=== PATIENT | female | born 1960 | race Caucasian/White ===

== ENCOUNTER → 2019-07-17 10:32 | Outpatient (CLI) | payer OTHER, MEDICARE, SELFPAY ==
--- NOTE | ~2019-07-17 | MM_ITS ---
EXAMINATION: MM screening khang BI w marilyn HISTORY: Screening mammogram TECHNIQUE: Craniocaudal and mediolateral oblique 3-D tomosynthesis images were obtained and synthetic 2-D images were generated. CAD analysis was submitted and interpreted. COMPARISON: 03/26/2018, 03/24/2017, 02/17/2016 bilateral digital screening mammogram examinations BREAST PARENCHYMAL COMPOSITION: The breasts are heterogeneously dense, which may obscure small masses . FINDINGS: There is no evidence of suspicious mass, calcification, or architectural distortion to sugg est malignancy in either breast. There has been no suspicious interval change. IMPRESSION: 1. No mammographic evidence of malignancy. 2. Recommend routine screening mammography in one year. BI-RADS Category 1: Negative Reviewed, dictated and finalized at location A. [employer]
== END ==
PROVIDERS: PCP Family Medicine; Visit Provider Obstetrics & Gynecology
DX: Z12.31 Encounter for screening mammogram for malignant neoplasm of breast (principal)
CPT/HCPCS: 77063; 77067

== ENCOUNTER → 2020-09-17 16:18 | Outpatient (CLI) | payer OTHER, MEDICARE, SELFPAY ==
--- NOTE | ~2020-09-17 | MM_ITS ---
EXAMINATION: MM screening khang BI w marilyn HISTORY: Screening TECHNIQUE: Craniocaudal and mediolateral oblique 3-D tomosynthesis images were obtained and synthetic 2-D images were generated. CAD analysis was submitted and interpreted. COMPARISON: Comparison to multiple prior studies sequentially, with oldest reviewed study dated 01/2015. BREAST PARENCHYMAL COMPOSITION: The breasts are heterogeneously dense, which may obscure small masses . FINDINGS: There is focal architectural distortion in the upper central aspect of the left breast whic h was not definitely seen on prior study. The right breast is stable without evidence for malignancy. IMPRESSION: 1. Architectural distortion upper central left breast, middle third. 2. Additional mammographic views and possible breast ultrasound are recommended. BI-RADS Category 0: Incomplete: Needs additional imaging evaluation. Reviewed, dictated and finalized at location A. IMPRESSION: 1. Architectural distortion upper central left breast, middle third. 2. Additional mammographic views and possible breast ultrasound are recommended . BI-RADS Category 0: Incomplete: Needs additional imaging evaluation.
== END ==
PROVIDERS: PCP Internal Medicine; Visit Provider Nurse Practitioner Obstetrics & Gynecology
DX: Z12.31 Encounter for screening mammogram for malignant neoplasm of breast (principal)
CPT/HCPCS: 77063; 77067

== ENCOUNTER → 2020-10-09 12:47 | Outpatient (CLI) | payer OTHER, MEDICARE, SELFPAY ==
--- NOTE | ~2020-10-09 | DEXA_ITS ---
Bone Density Report Name: Shreya Vernon Age: 60 Sex: Female Ethnicity: White Date of : 1960 Indication: postmenopausal; screening for osteoporosis; parental hip fracture; height loss; prior fracture; Referring Provider: Keli, Suad Contreras Study: Bone densitometry was performed. Exam Date: October 09, 2020 Accession number: [id number] Bone Density: Region BMD T-score Z-score Classification Femoral Neck (Left) 0.891 0.4 1.6 Normal Total Hip (Left) 1.031 0.7 1.6 Normal Femoral Neck (Right) 0.837 -0.1 1.1 Normal Total Hip (Right) 1.003 0.5 1.3 Normal Total Hip Mean 1.017 0.6 1.5 Normal World Health Organization criteria for BMD impression classify patients as: Normal (T-score at or above -1.0), Osteopenia (T-score between -1.0 and -2.5), or Osteoporosis (T-score at or below -2.5). 10-year Fracture Risk: FRAX not reported because: All T-scores for Spine Total, Hip Total, Femoral Neck at or above -1.0 Prior hip or vertebral fracture Previous Exams: Region Exam Age BMD T-score BMD Change BMD Change Date g/cm2 vs Baseline vs Previous Total Hip(Left) 10/09/2020 60 1.031 0.7 -0.099* -0.121* 01/21/2015 54 1.152 1.7 0.022 0.022 10/11/2011 51 1.131 1.5 Total Hip(Right) 10/09/2020 60 1.003 0.5 -0.130* -0.126* 01/21/2015 54 1.130 1.5 -0.004 -0.004 10/11/2011 51 1.133 1.6 *Denotes significance at 95% confidence level, LSC for Total Hip = 0.027 g/cm2 Clinical Information Provided by Patient: Have had a previous hip or vertebral fracture Has had a low trauma fracture Parent has had a hip fracture Has used the following medications: Vitamin D, Calcium, MTV Patient maximum height was 70.0 Menopause Age: 55 No regular weight bearing exercise Does not regularly consume dairy products Drinks caffeinated beverages Onset of menses at age 13 Number of children 2 Impression: The patient has normal bone mass. The patient has risk factors, including: parental hip fracture, previous fracture. The BMD for the Total Hip(Left) decreased, changing by -0.121 since the last DXA exam. The BMD for the Total Hip(Right) decreased, changing by -0.126 since the last DXA exam. Discussion: INCREASED RISK OF FRACTURE DUE TO HISTORY OF FRACTURE. The patient's previous fracture puts the patient at high risk of a future fracture. In untreated patients, the risk of osteoporotic fracture increases approximately two-fold for each
== END ==
PROVIDERS: Visit Provider Nurse Practitioner Obstetrics & Gynecology
DX: Z78.0 Asymptomatic menopausal state (principal)
CPT/HCPCS: 77080

== ENCOUNTER → 2020-10-21 09:55 | Outpatient (CLI) | payer OTHER, MEDICARE, SELFPAY ==
--- NOTE | ~2020-10-21 | MMUS_ITS ---
EXAMINATION: MM diagnostic khang LT w marilyn, US breast LT complete HISTORY: Architectural distortion reported in middle third of central left breast on 09/17/2020 screeni ng mammogram TECHNIQUE: Additional 3-D tomosynthesis images of the left breast were performed and synthetic 2-D im ages were generated. CAD analysis was submitted and interpreted. High resolution complete left breast ultrasound was performed. COMPARISON: 09/17/2020 bilateral digital screening mammogram FINDINGS: MAMMOGRAPHIC FINDINGS: An approximately 4 mm mass with associated architectural distortion is suggested in the upper central anterior left breast. ULTRASOUND: 12:00 5 cm from nipple: There is an irregular hypoechoic approximately 6 mm mass with internal vascul arity and posterior shadowing, suspicious for malignancy. Ultrasound-guided biopsy is recommended. IMPRESSION: 1. Suspicious 6 mm mass at 12:00 5 cm from nipple 2. Ultrasound-guided biopsy of left breast 12:00 lesion is recommended BI-RADS category 4, suspicious findings. Dr. Craig telephoned the report and ultrasound guided biopsy recommendation on 10/31/2020 at 1057 hours to Hilda. Reviewed, dictated and finalized at location A. IMPRESSION: 1. Suspicious 6 mm mass at 12:00 5 cm from nipple 2. Ultrasound-guided biopsy of left breast 12:00 lesion is recommended BI-RADS category 4, suspicious findings. Dr. Craig telephoned the report and ultrasound guided biopsy recommendation on at 1057 hours to Hilda.
== END ==
PROVIDERS: Visit Provider Nurse Practitioner Obstetrics & Gynecology
DX: R92.8 Other abnormal and inconclusive findings on diagnostic imaging of breast (principal); N63.25 Unspecified lump in the left breast, overlapping quadrants
CPT/HCPCS: 76641; 77061; 77065; G0279

== ENCOUNTER → 2023-01-23 15:07 | Outpatient (CLI) | payer OTHER, MEDICARE, SELFPAY ==
--- NOTE | ~2023-01-23 | DEXA_ITS ---
Bone Density Report Name: RUBY NUNEZ Age: 62 Sex: Female Ethnicity: White Date of : 1960 Indication: postmenopausal; screening for osteoporosis; parental hip fracture; height loss; prior fracture; cancer; Referring Provider: UNKNOWN, UNKNOWN Study: Bone densitometry was performed. Exam Date: January 23, 2023 Accession number: [id number] Bone Density: Region BMD T-score Z-score Classification Femoral Neck (Left) 0.903 0.5 1.8 Normal Total Hip (Left) 1.030 0.7 1.7 Normal Femoral Neck (Right) 0.826 -0.2 1.1 Normal Total Hip (Right) 0.976 0.3 1.3 Normal Total Hip Mean 1.003 0.5 1.5 Normal World Health Organization criteria for BMD impression classify patients as: Normal (T-score at or above -1.0), Osteopenia (T-score between -1.0 and -2.5), or Osteoporosis (T-score at or below -2.5). 10-year Fracture Risk: FRAX not reported because: All T-scores for Spine Total, Hip Total, Femoral Neck at or above -1.0 Prior hip or vertebral fracture Previous Exams: Region Exam Age BMD T-score BMD Change BMD Change Date g/cm2 vs Baseline vs Previous Total Hip(Left) 01/23/2023 62 1.030 0.7 -0.101* -0.001 10/09/2020 60 1.031 0.7 -0.099* -0.121* 01/21/2015 54 1.152 1.7 0.022 0.022 10/11/2011 51 1.131 1.5 Total Hip(Right) 01/23/2023 62 0.976 0.3 -0.157* -0.027 10/09/2020 60 1.003 0.5 -0.130* -0.126* 01/21/2015 54 1.130 1.5 -0.004 -0.004 10/11/2011 51 1.133 1.6 *Denotes significance at 95% confidence level, LSC for Total Hip = 0.027 g/cm2 Clinical Information Provided by Patient: Have had a previous hip or vertebral fracture Has had a low trauma fracture Parent has had a hip fracture Has used the following medications: Calcium, MTV Has the following medical conditions: Cancer Patient maximum height was 70.0 Menopause Age: 55 No regular weight bearing exercise Does not regularly consume dairy products Drinks caffeinated beverages Onset of menses at age 13 Number of children 2 Impression: The patient has normal bone mass. The patient has risk factors, including: parental hip fracture, previous fracture. No significant bone loss was observed. Discussion: INCREASED RISK OF FRACTURE DUE TO HISTORY OF FRACTURE. The patient's previous fracture puts the patient at high risk of a future fracture. In untreated patients, the risk of osteoporotic fracture increases
== END ==
DX: C50.912 Malignant neoplasm of unspecified site of left female breast (principal); Z85.3 Personal history of malignant neoplasm of breast; Z79.811 Long term (current) use of aromatase inhibitors
CPT/HCPCS: 77080

== ENCOUNTER 2023-06-14 00:23 | Day surgery (SDC) | payer OTHER, MEDICARE, SELFPAY ==
[2023-05-26 11:14] VITALS: BMI 23.3
--- NOTE | 2023-06-12 12:57 | SUR.PREOP ---
Patient called regarding upcoming procedure. Pt updated on arrival date and time. All questions answered.
[2023-06-14 09:22] VITALS: BP 124/78; PULSE 72; RESP 20; TEMP 36.2; O2SAT 100
--- NOTE | 2023-06-14 09:26 | WPDANESEPPF ---
Anes - Initial Pre Proc Eval Procedure: Operation Date: 06/14/23 10:00 Proposed Procedures p Colonoscopy - Arun Rodriguez MD Date/Time: 06/14/23 09:26 Surgeon: Arun Rodriguez MD Pre Op Diagnosis: Fam hx of malignant neoplasm of digestive organs Patient Data Age: 62 Gender: F Height: 1.75 m Weight: 72.6 kg Last Vital Signs Temp 97.2 F L 06/14/23 09:22 Pulse 72 06/14/23 09:22 Resp 20 06/14/23 09:22 BP 124/78 06/14/23 09:22 Pulse Ox 100 06/14/23 09:22 O2 Del Method Room Air 06/14/23 09:22 Allergies Allergy/AdvReac Type Severity Reaction Status Date / Time amoxicillin Allergy Mild Rash Verified 06/14/23 09:20 hexachlorophene Allergy Mild Rash Verified 06/14/23 09:20 phenobarbital Allergy Mild DEATHLY ILL Verified 06/14/23 09:20 erythromycin base Allergy Unknown Nausea Verified 06/14/23 09:20 Penicillins Allergy Unknown Unknown Verified 06/14/23 09:20 Sulfa (Sulfonamide Allergy Unknown Unknown Verified 06/14/23 09:20 Antibiotics) lithium AdvReac Unknown Verified 05/26/23 11:10 Home Medications Medication Instructions Recorded Confirmed Type alprazolam 1 mg tablet 1 mg PO QID 03/18/19 05/26/23 History spironolactone 50 mg tablet 50 mg PO DAILY 03/18/19 05/26/23 History biotin 5,000 mcg sublingual tablet 5,000 mcg sublingual DAILY 01/28/21 05/26/23 History multivit with minerals-iron 18 1 tablet PO DAILY 01/28/21 05/26/23 History mg-folic ac 400 mcg-vit K 25 mcg tablet (Adults Multivitamin) anastrozole 1 mg tablet 1 mg PO DAILY 04/27/21 05/26/23 History bupropion HCl 100 mg tablet 200 mg PO BID 04/27/21 05/26/23 History divalproex 500 mg tablet,extended 500 mg PO BID 04/27/21 05/26/23 History release 24 hr (Depakote ER) Lactobacillus cap PO 04/29/22 05/17/23 History acidophilus-Bifidobac.animalis 2.5 billion cell capsule (Daily Probiotic) calcium carb,cit ER 600 mg-vit D3 1 tablet PO BID 04/29/22 05/26/23 History 12.5 mcg (500 unit) tablet,ext.rel cholecalciferol (vitamin D3) 25 25 mcg PO DAILY 04/29/22 05/26/23 History mcg (1,000 unit) capsule desvenlafaxine succinate 50 mg 100 mg PO DAILY 03/15/23 05/26/23 History tablet,extended release 24 hr (Pristiq) nabumetone 500 mg tablet 500 mg PO BID #180 tabs 04/26/23 05/26/23 Rx Patient hx anesthesia problems: none Family hx anesthesia problems: none Results Review: All pre-operative results and documents have been reviewed as part of the pre-operative evaluation. [facility] Past Medical History Medical History Anxiety Arthritis Bipolar disorder with depression Dr. Oseas Todd is her psychiatrist. Chronic back pain Status post lumbar fusion and spinal stimulator insertion. Depression UTI (urinary tract infection) Surgical History Surgical History History of lumbar fusion Multiple. History of lumpectomy of left breast S/P insertion of spinal cord stimulator Family History Family History Father Heart disease Parkinsons disease Social History Social History Social History: Mrs. Vernon is and lives with her , dog, and cat in [place]. She designates her , Nathan, as her surrogate decision maker and she is listed as a full code. She does not work. She smoked about half a pack of cigarettes per day and quit in her 20s. She drinks alcohol rarely, maybe once every 6 months. She denies illicit drug use. Her primary care provider is Dr. Olive Byrd. Smoking packs per day: 0.5 Smoking cigarettes per day: 10.0 Years smoked: 15 Smoking pack-years: 7.50 Smoking status: Former smoker Tobacco type: cigarettes Alcohol intake: current Alcohol use details: rare, one drink every 3 m
[2023-06-14] MEDS: LACTATED RINGERS 1,000 ML 150 ML IV CONT (09:33)
--- NOTE | 2023-06-14 09:36 | PM.HPGS ---
History of Present Illness History of Present Illness Consent: Risks, benefits, and alternatives have been discussed and questions answered. Patient agrees to proceed with procedure. Chief complaint: Fam hx of malignant neoplasm of digestive organs Narrative: Shreya Fallon Brother is a 62 year old female here for colonoscopy, she has been getting colonoscopies every 5 years because uncles/aunt with colon cancer. Review of Systems Constitutional: Constitutional: Denies headache(s) and Denies weakness Eyes: Eyes: Denies blurry vision ENT: Reports Normal hearing present, Denies headache(s) and Denies neck pain Cardiovascular: Cardiovascular: Denies chest pain and Denies dyspnea Respiratory: Respiratory: Denies dyspnea Gastrointestinal: Gastrointestinal: Reports no additional gastrointestinal complaints Genitourinary: Genitourinary: Denies dysuria Musculoskeletal: Musculoskeletal: Denies neck pain Integumentary/Breasts: Skin/Breast: Denies dry skin Neurologic: Reports Normal hearing present, Denies headache(s) and Denies weakness Psychiatric: Psychiatric: Denies anxiety Endocrine: Endocrine: Denies change in body appearance Hematologic/Lymphatic: Hematologic/Lymphatic: Denies easy bleeding Allergic/Immunologic: Allergic/Immunologic: Denies urticaria [facility] Past Medical History Medical History (Updated 06/14/23 @ 09:37 by Arun Rodriguez MD) Anxiety Arthritis Bipolar disorder with depression Dr. Oseas Todd is her psychiatrist. Chronic back pain Status post lumbar fusion and spinal stimulator insertion. Depression Family history of colon cancer UTI (urinary tract infection) Surgical History Surgical History History of lumbar fusion Multiple. History of lumpectomy of left breast S/P insertion of spinal cord stimulator Family History Family History Father Heart disease Parkinsons disease Social History Social History Social History: Mrs. Vernon is and lives with her , dog, and cat in [place]. She designates her , Nathan, as her surrogate decision maker and she is listed as a full code. She does not work. She smoked about half a pack of cigarettes per day and quit in her 20s. She drinks alcohol rarely, maybe once every 6 months. She denies illicit drug use. Her primary care provider is Dr. Olive Byrd. Smoking packs per day: 0.5 Smoking cigarettes per day: 10.0 Years smoked: 15 Smoking pack-years: 7.50 Smoking status: Former smoker Tobacco type: cigarettes Alcohol intake: current Alcohol use details: rare, one drink every 3 months Substance use: never Substance use type: does not use Lack of Transportation: No Lack of Food: Never True Current Housing: I Have Housing Concerned About Future Housing: No Difficulty Paying Gas/Electric Bills: No Difficulty Paying for Meds: No Currently Unemployed: No Education: High School Diploma/GED Difficulty w/ Childcare or Family Care: No Living arrangements: with family Gender identity (if verbalized by the patient): Female Spiritual care concerns: No Agree to blood products: Yes Meds Home Medications and Allergies Home Medications Medication Instructions Recorded Confirmed Type alprazolam 1 mg tablet 1 mg PO QID 03/18/19 05/26/23 History spironolactone 50 mg tablet 50 mg PO DAILY 03/18/19 05/26/23 History biotin 5,000 mcg sublingual tablet 5,000 mcg sublingual DAILY 01/28/21 05/26/23 History multivit with minerals-iron 18 1 tablet PO DAILY 01/28/21 05/26/23 History mg-folic ac 400 mcg-vit K 25 mcg tablet (Adults Multivitamin) anastrozole 1 mg tablet 1 mg PO DAILY 04/27/21 05/26/23 History bupropion HCl 100 mg tablet 200 mg PO BID 04/27/21 05/26/23 History divalproex 500 mg t
[2023-06-14 10:00] VITALS: BP 96/60; PULSE 60; RESP 20; O2SAT 99
[2023-06-14 10:10] VITALS: BP 103/65; PULSE 64; RESP 20; O2SAT 98
== END 2023-06-14 10:27 | disposition home or self-care (01) ==
PROVIDERS: PCP Family Medicine; Referring Provider Physician Assistant; Visit Provider Internal Medicine Gastroenterology
PROC: 0DJD8ZZ Inspection of Lower Intestinal Tract, Via Natural or Artificial Opening Endoscopic (ICD-10-PCS; CPT 45378; principal; 2023-06-14 10:00)
DX: Z12.11 Encounter for screening for malignant neoplasm of colon (principal); K64.8 Other hemorrhoids; Z80.0 Family history of malignant neoplasm of digestive organs; F31.9 Bipolar disorder, unspecified; F41.9 Anxiety disorder, unspecified; Z98.1 Arthrodesis status; Z87.891 Personal history of nicotine dependence; Z79.811 Long term (current) use of aromatase inhibitors
CPT/HCPCS: 45378; J2405; J2704; J7120

== ENCOUNTER 2023-06-20 20:10 | Emergency (ER) | payer OTHER, MEDICARE, SELFPAY ==
--- NOTE | ~2023-06-20 | CT_ITS ---
Clinical Indication: Chest pain CT Scan of the Chest with Contrast: Technique: Contiguous sections were acquired throughout the chest after intravenous administration of 100 cc of Omnipaque 350. Dose reduction technique was used on this scan by utilizing automated expos ure control and iterative reconstruction technique. The dose-length product (DLP) was 186.07 mGy-cm. Findings: There is no evidence of any significant mediastinal, hilar or axillary lymphadenopathy. There is no f illing defect in the pulmonary arterial tree to suggest pulmonary embolus. There is no evidence of ao rtic dissection or aneurysm. There is no evidence of pleural or pericardial effusion. There are minimal tree-in-bud opacities in the right upper lobe. Several scattered calcified granulom as are present. Images through the upper abdomen reveal no abnormalities. Impression: No evidence of pulmonary embolus, aortic dissection, or aortic aneurysm. Focal tree-in-bud opacities in the right upper lobe, compatible with focal small airways infectious p rocess. Reviewed, dictated and finalized at location . CURER Impression: No evidence of pulmonary embolus, aortic dissection, or aortic aneurysm. Focal tree-in-bud opacities in the right upper lobe, compatible with focal smal l airways infectious process.
--- NOTE | ~2023-06-20 | XR_ITS ---
EXAMINATION: XR chest 2V Exam Date/Time: 06/20/2023 20:40 DIRECTOR OF BROADCAST HISTORY: CP THAT RADIATES TO LEFT ARM AND SHOULDER X 45 MINUTES Comparison: 03/18/2019. RESULT: Lines, tubes, and devices: Stimulator leads project over the lower thoracic spine. Lungs and pleura: Mild diffuse reticular opacities. No focal consolidation, pleural effusion, or pne umothorax. Cardiomediastinal silhouette: Stable. Other: No acute osseous or upper abdominal finding. IMPRESSION: Mild interstitial edema. Reviewed, dictated and finalized at location K. CTOR OF BROADCAST IMPRESSION: Mild interstitial edema.
[2023-06-20 20:15] VITALS: BP 150/83; PULSE 87; RESP 18; TEMP 36.4; O2SAT 100
--- NOTE | 2023-06-20 20:16 | ECG_ITS ---
Measurements Intervals [place] Rate: 80 P: 64 [place]: 168 QRS: 4 QRSD: 103 T: 56 QT: 371 QTc: 430 Interpretive Statements SINUS RHYTHM NONSPECIFIC ST AND T WAVE ABNORMALITY COMPARED TO ECG 03/18/2019 16:36:[address] AND T WAVE ABNORMALITY NOW PRESENT Electronically Signed On 06-21-2023 15:07:23 [employer] by Sera West M.D.
[2023-06-20 20:37] LABS: Basophils Percent Auto 0.5 % (0.2-1.2); Eosinophils Absolute Auto 0.1 K/mm3 (0-0.3); Eosinophils Percent Auto 1.6 % (0-4.4); Hematocrit 40.2 % (37.0-47.0); Hemoglobin 13.5 g/dL (12.0-15.0); Immature Granulocyte Absolute 0.01 K/mm3 (0.00-0.031); Immature Granulocyte Percent A 0.2 % (0-0.5); Lymphocytes Absolute Auto 1.59 K/mm3 (0.9-3.2); Mean Corpuscular HGB Conc 33.6 g/dl (32-36); Mean Corpuscular Hemoglobin 31.5 pg (26-34); Mean Corpuscular Volume 93.7 fl (80-100); Mean Platelet Volume 9.8 fl (7.4-10.4); Monocytes Absolute Auto 0.5 K/mm3 (0.1-0.6); Monocytes Percent Auto 7.9 % (2.6-8.5); Neutrophils Absolute Auto 3.5 K/mm3 (1.3-6.7); Neutrophils Percent Auto 61.8 % (45.5-73.1); Platelet Count Result 175 k/mm3 (150-375); Red Blood Count 4.29 M/mm3 (4.2-5.4); Red Cell Distribution Width 12.1 % (11.5-14.5); White Blood Count 5.7 K/mm3 (4.5-10.0)
[2023-06-20 20:50] LABS: Alanine Aminotransferase 19 U/L (6-35); Albumin Level 4.6 g/dL (3.5-5.1); Alkaline Phosphatase 66 U/L (38-126); Anion Gap 4 mmol/L (8-16); Aspartate Amino Transferase 26 U/L (14-36); Bilirubin,Total 0.3 mg/dL (0.2-1.3); Blood Urea Nitrogen 12 mg/dL (7-17); Calcium 9.5 mg/dL (8.4-10.2); Carbon Dioxide 33 mmol/L (22-30); Chloride 92 mmol/L (98-107); Estimated CRCL calculation 61 ml/min; Estimated Glomerular Filt Rate > 60; Glucose 101 mg/dL (65-110); Lipase 80 U/L (23-300); Potassium 3.9 mmol/L (3.4-5.0); Sodium 129 mmol/L (137-145)
[2023-06-20 20:52] LABS: INR 0.9; Prothrombin Time 12.4 Seconds (11.1-14.7)
[2023-06-20 20:53] LABS: Partial Thromboplastin Time 24.9 SECONDS (22.3-36.8)
[2023-06-20 21:02] LABS: Troponin I < 0.012 ng/mL (0.000-0.034)
[2023-06-20 23:07] VITALS: O2SAT 100
--- NOTE | 2023-06-20 23:31 | ED.CHESTPAIN ---
HPI - Chest Pain General Chief Complaint: Chest Pain <Svetlana Alexis PA-C - Last Filed: 06/21/23 02:56> Stated Complaint: left shoulder pain down arm <Svetlana Alexis PA-C - Last Filed: 06/21/23 02:56> Time Seen by Provider: 06/20/23 23:04 <Svetlana Alexis PA-C - Last Filed: 06/21/23 02:56> History of Present Illness HPI narrative: 62-year-old female with a history of hyponatremia, breast cancer, bipolar disorder reports for evaluation for left-sided arm pain that started around 1999 today. Patient states the pain started in her left axilla and surrounding chest wall that radiated down her arm. She describes it as a sharp and aching pain. States that occurred while she was sitting down and lasted for approximately 2 hours, then spontaneously resolved. She denies aggravating or alleviating factors, neck pain, weakness, chest pain, shortness of breath, cough or congestion, fever, trauma, lower extremity pain. Denies numbness or paresthesias. <Svetlana Alexis PA-C - Last Filed: 06/21/23 02:56> Related Data Home Medications: Home Medications Medication Instructions Recorded Confirmed alprazolam 1 mg tablet 1 mg PO QID 03/18/19 05/26/23 spironolactone 50 mg tablet 50 mg PO DAILY 03/18/19 05/26/23 biotin 5,000 mcg sublingual tablet 5,000 mcg sublingual DAILY 01/28/21 05/26/23 multivit with minerals-iron 18 1 tablet PO DAILY 01/28/21 05/26/23 mg-folic ac 400 mcg-vit K 25 mcg tablet (Adults Multivitamin) anastrozole 1 mg tablet 1 mg PO DAILY 04/27/21 05/26/23 bupropion HCl 100 mg tablet 200 mg PO BID 04/27/21 05/26/23 divalproex 500 mg tablet,extended 500 mg PO BID 04/27/21 05/26/23 release 24 hr (Depakote ER) Lactobacillus cap PO 04/29/22 05/17/23 acidophilus-Bifidobac.animalis 2.5 billion cell capsule (Daily Probiotic) calcium carb,cit ER 600 mg-vit D3 1 tablet PO BID 04/29/22 05/26/23 12.5 mcg (500 unit) tablet,ext.rel cholecalciferol (vitamin D3) 25 25 mcg PO DAILY 04/29/22 05/26/23 mcg (1,000 unit) capsule desvenlafaxine succinate 50 mg 100 mg PO DAILY 03/15/23 05/26/23 tablet,extended release 24 hr (Pristiq) <Svetlana Alexis PA-C - Last Filed: 06/21/23 02:56> Allergies/Adverse Reactions: Allergies Allergy/AdvReac Type Severity Reaction Status Date / Time amoxicillin Allergy Mild Rash Verified 06/20/23 23:08 hexachlorophene Allergy Mild Rash Verified 06/20/23 23:08 phenobarbital Allergy Mild DEATHLY ILL Verified 06/20/23 23:08 erythromycin base Allergy Unknown Nausea Verified 06/20/23 23:08 Penicillins Allergy Unknown Unknown Verified 06/20/23 23:08 Sulfa (Sulfonamide Allergy Unknown Unknown Verified 06/20/23 23:08 Antibiotics) lithium AdvReac Unknown Verified 06/20/23 23:08 <Svetlana Alexis PA-C - Last Filed: 06/21/23 02:56> Review of Systems Review of Systems: CONSTITUTIONAL: Denies fever, chills, or sweats. EYES: Denies visual changes, redness, or discharge. ENT: Denies rhinorrhea, congestion, sore throat, or otalgia. CARDIOVASCULAR: Denies chest pain, palpitations, or edema. RESPIRATORY: Denies cough or dyspnea. GASTROINTESTINAL: Denies abdominal pain, nausea, vomiting, or diarrhea. GENITOURINARY: Denies dysuria or hematuria. SKIN: Denies rash or itching. MUSCULOSKELETAL: See HPI NEUROLOGIC: Denies headache, numbness, or weakness. PSYCHIATRIC: Denies anxiety or depression. <Svetlana Alexis PA-C - Last Filed: 06/21/23 02:56> [facility] Past Medical History Medical History: Medical History Anxiety Arthritis Bipolar disorder with depression Dr. Oseas Todd is her psychiatrist. Chronic back pain Status post lumbar fusion and spinal stimulator insertion. Depression Family history of colon cancer UTI (urinary tract infection) <Svetlana Alexis PA-C - Last Filed: 06/21/23 02:56> Surgical History Surgical History: Surgical History (Reviewed 06/20
[2023-06-21 00:18] LABS: Appearance Urine Clear (Clear); Bilirubin Urine Negative (Negative); Blood Urine Negative (Negative); Color Urine Yellow (Yellow); Glucose Urine UA Negative (Negative); Ketones Urine Negative (Negative); Leukocyte Esterase Ur Negative LEU/UL (Negative); Nitrate Urine Negative (Negative); Protein Urine Negative (Negative); Specific Grav Ur 1.004 (1.001-1.035); Urobilinogen Urine 0.2 mg/dL (<2.0)
[2023-06-21 00:19] LABS: Add Urine Microscopic? NO
[2023-06-21 00:27] LABS: INR 0.9; Prothrombin Time 12.9 Seconds (11.1-14.7)
[2023-06-21 00:28] LABS: Partial Thromboplastin Time 25.6 SECONDS (22.3-36.8)
[2023-06-21 00:42] LABS: NT Pro B Type Natriuretic Pept 68 pg/mL (19.9-100); Troponin I < 0.012 ng/mL (0.000-0.034)
[2023-06-21 01:24] VITALS: BP 145/77; PULSE 66; RESP 14; O2SAT 98
[2023-06-21] MEDS: SODIUM CHLORIDE 0.9% IV 1,000 ML 999 ML IV CONT ×2 (02:12)
[2023-06-21 03:30] VITALS: BP 132/73; PULSE 58; RESP 14; O2SAT 100
[2023-06-21 04:13] LABS: Anion Gap 5 mmol/L (8-16); Blood Urea Nitrogen 11 mg/dL (7-17); Calcium 8.6 mg/dL (8.4-10.2); Carbon Dioxide 28 mmol/L (22-30); Chloride 100 mmol/L (98-107); Estimated CRCL calculation 77 ml/min; Estimated Glomerular Filt Rate > 60; Glucose 82 mg/dL (65-110); Potassium 3.8 mmol/L (3.4-5.0); Sodium 133 mmol/L (137-145)
[2023-06-21 05:28] VITALS: BP 136/79; PULSE 62; RESP 15; O2SAT 100
== END 2023-06-21 05:31 | disposition home or self-care (01) ==
PROVIDERS: Physician Assistant; Emergency Provider Emergency Medicine; PCP Family Medicine
DX: J21.9 Acute bronchiolitis, unspecified (principal); E87.1 Hypo-osmolality and hyponatremia; N63.20 Unspecified lump in the left breast, unspecified quadrant; Z87.891 Personal history of nicotine dependence; F41.9 Anxiety disorder, unspecified; M19.90 Unspecified osteoarthritis, unspecified site; F32.9 Major depressive disorder, single episode, unspecified; G89.29 Other chronic pain
CPT/HCPCS: 36415; 71046; 71275; 80048; 80053; 81003; 83690; 83880; 84484; 85025; 85610; 85730; 93005; 96360; 96361; 99284; J7030; Q9967

== ENCOUNTER 2023-07-18 09:36 | Outpatient (CLI) | payer OTHER, MEDICARE, SELFPAY ==
--- NOTE | 2023-07-18 09:45 | EST_ITS ---
Patient Info Name: Shreya Fallon Brother Age: 62 years : 1960 Gender: Female Ht: 69 in Wt: 158 lbs BSA: 1.87 m2 HR: 67 bpm BP: 147 / 82 mmHg Heart Rhythm: Sinus Rhythm Exam Date: 07/18/2023 9:55 AM Exam Location: [facility] Patient Status: Outpatient Admit Date: 07/18/2023 Staff Ordering Physician: Alaina Boykin PA-C Attending Provider: Alaina Boykin PA-C Exercise Technologist: Jessica Jett CT Exercise Physician: Bandar Molina DO Exam Type: CA stress test treadmill Study Info Indications R07.89 - Other chest pain A treadmill exercise stress test was performed. Summary 1. 1. Negative Neal exercise stress test for ischemic ST changes by ECG criteria. 2. 2. Good functional capacity, achieving 9.8 METs of workload. 3. 3. Appropriate HR response to exercise. 4. 4. Appropriate HR recovery at 1 minute post exercise. 5. 5. No imaging with stress testing. 6. 6. Patient informed of the above results. Protocol: Neal Stress ECG Details Stage: REST Duration (min): 1 min : 9 sec Speed (mph): 0.0 Grade (%): 0 HR (bpm): 68 SBP (mmHg): 147 DBP (mmHg): 82 METS: --- Stage: REST Duration (min): 15 min : 23 sec Speed (mph): 0.0 Grade (%): 0 HR (bpm): 76 SBP (mmHg): 147 DBP (mmHg): 82 METS: --- Stage: STAGE 1 Duration (min): 1 min : 0 sec Speed (mph): 1.7 Grade (%): 10 HR (bpm): 88 SBP (mmHg): 147 DBP (mmHg): 82 METS: --- Stage: STAGE 1 Duration (min): 2 min : 0 sec Speed (mph): 1.7 Grade (%): 10 HR (bpm): 99 SBP (mmHg): 147 DBP (mmHg): 82 METS: --- Stage: STAGE 1 Duration (min): 3 min : 0 sec Speed (mph): 1.7 Grade (%): 10 HR (bpm): 99 SBP (mmHg): 193 DBP (mmHg): 88 METS: --- Stage: STAGE 2 Duration (min): 1 min : 0 sec Speed (mph): 2.5 Grade (%): 12 HR (bpm): 104 SBP (mmHg): 193 DBP (mmHg): 88 METS: --- Stage: STAGE 2 Duration (min): 2 min : 0 sec Speed (mph): 2.5 Grade (%): 12 HR (bpm): 109 SBP (mmHg): 175 DBP (mmHg): 83 METS: --- Stage: STAGE 2 Duration (min): 3 min : 0 sec Speed (mph): 2.5 Grade (%): 12 HR (bpm): 119 SBP (mmHg): 175 DBP (mmHg): 83 METS: --- Stage: STAGE 3 Duration (min): 1 min : 0 sec Speed (mph): 3.4 Grade (%): 14 HR (bpm): 129 SBP (mmHg): 184 DBP (mmHg): 84 METS: --- Stage: STAGE 3 Duration (min): 1 min : 39 sec Speed (mph): 3.4 Grade (%): 14 HR (bpm): 136 SBP (mmHg): 184 DBP (mmHg): 84 METS: --- Stage: RECOVERY Duration (min): 0 min : 20 sec Speed (mph): 0.0 Grade (%): 0 HR (bpm): 134 SBP (mmHg): 184 DBP (mmHg): 84 METS: --- Stage: RECOVERY Duration (min): 1 min : 20 sec Speed (mph): 0.0 Grade (%): 0 HR (bpm): 105 SBP (mmHg): 184 DBP (mmHg): 84 METS: --- Stage: RECOVERY Duration (min): 2 min : 20 sec Speed (mph): 0.0 Grade (%): 0 HR (bpm): 90 SBP (mmHg): 184 DBP (mmHg):
== END 2023-07-18 09:37 | disposition home or self-care (01) ==
PROVIDERS: PCP Family Medicine; Visit Provider Physician Assistant
DX: R07.9 Chest pain, unspecified (principal)
CPT/HCPCS: 93017

== ENCOUNTER 2024-04-01 10:05 | Outpatient (CLI) | payer OTHER, MEDICARE, SELFPAY ==
--- NOTE | 2024-04-01 16:09 | WPDPFTINT ---
PFT Procedure Performed PFT Procedure Performed Spirometry with Pre/Post Bronchodilator Plethysmography (Lung Vol) Diffusing Cap (DLCO) Flow Vol Loop PFT Interpretation This is a pulmonary function test with pre and post-bronchodilator spirometry, plethysmography and diffusing capacity. The test was performed and results interpreted in accordance with the 2019 and 2005 ATS/ERS Task Force guidelines respectively using the Global Lung Function Initiative-2012 reference equations. Patient demonstrated good effort and cooperation. Reproducibility criteria were met. The quality of the pre bronchodilator spirometry maneuver was Grade A and post bronchodilator spirometry maneuver was Grade A. Findings: Spirometry: The contour the inspiratory and expiratory flow tracing are normal. The pre bronchodilator FVC is 2.90 L, 78% predicted. The pre bronchodilator FEV1 is 2.29 L, 79% predicted. The pre bronchodilator FEV1: FVC ratio 79%. The post bronchodilator FVC is 2.91 L, representing no change. The post bronchodilator FEV1 is 2.37 L, representing a 3% increase. The post bronchodilator FEV1: FVC ratio is 81%. Plethysmography: The total lung capacity is 4.11 L, 71% predicted. The functional residual capacity is 1.77 L, 54% predicted. The residual volume is 1.21 L, 54% predicted. Diffusing capacity: The diffusing capacity unadjusted for hemoglobin and carboxyhemoglobin is 20.9, 89% predicted. The diffusing capacity adjusted for alveolar volume is 4.72, 113% predicted. Impression: There is a mild restrictive ventilatory abnormality. The spirometry is normal without evidence of an obstructive abnormality. There is no significant improvement after inhaling a single dose of albuterol. The diffusing capacity is normal. There are no prior studies for comparison
== END 2024-04-01 10:06 | disposition home or self-care (01) ==
PROVIDERS: PCP Family Medicine; Visit Provider Family Medicine
DX: R06.00 Dyspnea, unspecified (principal)
CPT/HCPCS: 94060; 94726; 94729

== ENCOUNTER 2024-11-06 09:23 | Outpatient (CLI) | payer OTHER, MEDICARE, SELFPAY ==
--- NOTE | ~2024-11-06 | XR_ITS ---
EXAM/ PROCEDURE: XR thoracic spine 2V - 11/06/2024 9:30 CDT HISTORY: 64 years old Female with Other low back pain Other low back pain COMPARISON: None available TECHNIQUE: Three view(s) FINDINGS/ IMPRESSION: There are no fractures or dislocations.Multilevel degenerative changes are seen. Visualized portion o f lungs are clear. Spinal stimulator leads are seen. Reviewed, dictated and finalized at location A.
--- NOTE | ~2024-11-06 | XR_ITS ---
EXAM/ PROCEDURE: XR lumbar spine 2-3V - 11/06/2024 9:30 CDT HISTORY: 64 years old Female with Other low back pain COMPARISON: None available TECHNIQUE: Three view(s) FINDINGS/ IMPRESSION: Status post L3-S1 posterior spinal fusion with intact hardware and no loosening. Intervertebral disc spaces are seen. Partially visualized spinal stimulator with intact leads in the visualized portion. Multilevel degenerative changes are seen. No discrete fracture visualized. Moderate stool burden. Reviewed, dictated and finalized at location A.
== END 2024-11-06 09:24 | disposition home or self-care (01) ==
LOC: MICIMG 09:25
PROVIDERS: PCP Family Medicine; Visit Provider Nurse Practitioner Family
DX: M51.360 Other intervertebral disc degeneration, lumbar region with discogenic back pain only (principal); M51.370 Other intervertebral disc degeneration, lumbosacral region with discogenic back pain only; Z98.1 Arthrodesis status; Z96.698 Presence of other orthopedic joint implants; Z96.82 Presence of neurostimulator
CPT/HCPCS: 72070; 72100